=== PATIENT | female | born 1980 | race Caucasian/White ===

== ENCOUNTER 2019-07-19 07:31 | Outpatient (CLI) | payer BC ==
[2019-07-19] MEDS ORDERED: Iopamidol 370 76% 100 ML VIAL ONE (09:00)
--- NOTE | 2019-07-19 09:22 | CT ---
CT ABDOMEN AND PELVIS WITH IV CONTRAST: Date: 07/19/19 INDICATION: History of left lower quadrant abdominal pain. COMPARISON: None. FINDINGS: Lung bases are clear. No focal hepatic lesion is evident. Visualized aspects of the gallbladder appear within normal limits . Pancreas, adrenal glands, and spleen appear within normal limits. No focal renal lesion is evident. No free fluid or enlarged lymph nodes are evident. There is a normal appendix in the right lower quadrant. There is an IUD within the central uterus. The bladder is partially decompressed. Rectum and perirect al soft tissues are unremarkable appearing. A few scattered diverticula are seen involving the colon without evidence of active diverticulitis. There is an involuting follicular cyst within the left ova ry on image 69 of series 2 measuring 1.6 cm. Visualized aspects of the right ovary are normal appeari ng. No free fluid is identified. No acute osseous abnormality is evident. IMPRESSION: 1. No definite CT explanation for the patient's left lower quadrant abdominal pain. 2. IUD. 3. Involuting follicular cyst within the left ovary. No free fluid demonstrated within the pelvis. 4. Normal appendix. POS: [facility]
== END 2019-07-19 07:32 | disposition home or self-care (01) ==
LOC: CT 07:31
PROVIDERS: ATTEND Internal Medicine
DX: R10.32 Left lower quadrant pain (principal); N83.202 Unspecified ovarian cyst, left side; Z97.5 Presence of (intrauterine) contraceptive device
CPT/HCPCS: 74177; Q9967

== ENCOUNTER 2019-12-07 16:21 | Outpatient (CLI) | payer BC ==
--- NOTE | 2019-12-07 16:58 | ULT ---
Exam: Soft tissue ultrasound HISTORY: Patient was working horse last when a horse stepped on the patient's leg. Bruising and knot. COMPARISON: none TECHNIQUE: Targeted sonographic imaging of the region of concern was performed. Static images are rev iewed FINDINGS: There is a heterogeneous echotexture focus in the right lower extremity measuring 3.8 x 2.8 cm, corre sponding to the palpable area. There is no significant vascular flow. Resolving hematoma is favored. Mild edema in the adjacent soft tissues. IMPRESSION: Presumed resolving hematoma in the right lower extremity. Infected fluid collection could have a lynette lar echotexture. Correlate clinically.
--- NOTE | 2019-12-07 17:01 | RAD ---
Exam:Right tibia fibula 2 views HISTORY: Injury. Bruising. Patient hit leg by a horse. COMPARISON: None FINDINGS: No fracture, cortical irregularity or periosteal reaction. IMPRESSION: No fracture.
== END 2019-12-07 16:22 | disposition home or self-care (01) ==
LOC: SCSULT 16:21
PROVIDERS: ATTEND Physician Assistant
DX: S89.91XA Unspecified injury of right lower leg, initial encounter (principal); S80.11XA Contusion of right lower leg, initial encounter
CPT/HCPCS: 76999